=== PATIENT | male | born 1980 | race Caucasian/White ===

== ENCOUNTER 2016-08-29 10:20 | Emergency (ER) | payer OTHER ==
[2016-08-29] MEDS ORDERED: fentaNYL CITRATE/PF 100 MCG/ 2ML AMP ONE (10:39)
[2016-08-29] MEDS: fentaNYL CITRATE/PF 100 MCG/ 2ML AMP IVP ONE ×2 (10:50→11:15)
[2016-08-29 11:09] VITALS: BP 146/108
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
[2016-08-29] MEDS: DIPH,PERTUSS(ACELL),TET VAC/PF 0.5 ML DISP.SYRIN IM ONE (12:30)
[2016-08-29] MEDS: HYDROmorphone HCL/PF 1 MG/ML DISP.SYRIN IVP ONE (13:19)
== END 2016-08-29 12:50 | disposition home or self-care (01) ==
LOC: ED 10:20
DX: T23.101A Burn of first degree of right hand, unspecified site, initial encounter (principal); X08.8XXA Exposure to other specified smoke, fire and flames, initial encounter; Y93.9 Activity, unspecified; Y99.9 Unspecified external cause status
CPT/HCPCS: 90715; J3010; 96374; 96375; 99283; S1016